=== PATIENT | male | born 1955 | race Caucasian/White ===

== ENCOUNTER → 2017-10-22 08:31 | Outpatient (CLI) | payer OTHER | END | disposition home or self-care (01) | LOC: D.US 08:31 | DX: R10.9 Unspecified abdominal pain (principal) ==

== ENCOUNTER → 2018-01-05 15:45 | Outpatient (CLI) | payer OTHER | END | disposition home or self-care (01) | LOC: D.US 15:30 | DX: R60.0 Localized edema (principal); M79.604 Pain in right leg ==

== ENCOUNTER → 2020-01-30 09:45 | Outpatient (CLI) | payer OTHER | END | disposition home or self-care (01) | LOC: D.CT 09:45 | PROVIDERS: ATTEND Family Medicine | DX: M54.2 Cervicalgia (principal) ==